=== PATIENT | female | born 1960 | race Caucasian/White ===

== ENCOUNTER 2021-05-07 13:21 | Outpatient (CLI) | payer OTHER | END 2021-05-07 13:22 | disposition home or self-care (01) | LOC: SCSMRI 13:21 | PROVIDERS: ATTEND Neurological Surgery | DX: M47.22 Other spondylosis with radiculopathy, cervical region (principal); M47.26 Other spondylosis with radiculopathy, lumbar region | CPT/HCPCS: 72141; 72148 ==